=== PATIENT | female | born 1975 | race Caucasian/White ===

== ENCOUNTER 2017-01-23 08:51 | Day surgery (SDC) | payer MEDICAID ==
[2017-01-23 09:12] LABS: HCG UR QUAL NEGATIVE
[2017-01-23] MEDS ORDERED: LACTATED RINGERS 1,000 ML IV ONE ×3 (09:50→11:38)
[2017-01-23] MEDS ORDERED: BUPIVACAINE 0.25% PF 30 ML VIAL SUBQ ONE ×5 (11:36→12:04)
[2017-01-23] MEDS ORDERED: fentaNYL 100 MCG/2 ML VIAL IVP ONE (12:40)
[2017-01-23] MEDS ORDERED: ACETAMINOPHEN 1,000 MG/100 ML 100 ML IV ONE (12:40)
[2017-01-23] MEDS ORDERED: LIDOCAINE-MPF 2% 5 ML VIAL IM ONE (12:40)
[2017-01-23] MEDS ORDERED: ONDANSETRON 4 MG/2 ML VIAL IVP ONE (12:40)
[2017-01-23] MEDS ORDERED: PROPOFOL 200 MG/20 ML VIAL IVP ONE (12:40)
[2017-01-23] MEDS ORDERED: PROPOFOL 1000 MG/100 ML IV ONE (12:40)
[2017-01-23] MEDS ORDERED: MIDAZOLAM 2 MG/2 ML VIAL IVP ONE (12:40)
[2017-01-23] MEDS ORDERED: KETAMINE 500 MG/10 ML VIAL IVP ONE (12:40)
[2017-01-23] MEDS ORDERED: DEXAMETHASONE 4 MG/ML VIAL IVP ONE (12:40)
[2017-01-23] MEDS ORDERED: ceFAZolin 1 GM VIAL IV ONE (12:40)
[2017-01-23] MEDS: fentaNYL 100 MCG/2 ML VIAL ONE ×2 (13:18→13:25)
[2017-01-23 14:20] VITALS: BP 120/70
--- NOTE | 2017-02-13 13:55 | OPERATIVE REPORT ---
DATE OF SURGERY: 01/23/2017 00:00:00 PREOPERATIVE DIAGNOSIS: Bilateral carpal tunnel syndrome. PROCEDURES 1. Carpal tunnel release, right wrist. 2. Carpal tunnel release, left wrist. POSTOPERATIVE DIAGNOSIS: Bilateral carpal tunnel syndrome. SURGEON: Obie Garcia MD. ASSISTANTS: None. ANESTHESIA: General endotracheal. FINDINGS: Same. COMPLICATIONS: None. ESTIMATED BLOOD LOSS: None. TOURNIQUETS 1. Right arm Esmarch, x11 minutes. 2. Left arm Esmarch, x10 minutes. SPECIMEN REMOVED AND CULTURES: None. CONDITION AT END OF PROCEDURE: Stable. DISPOSITION: PACU, then home. 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 She has h ad a several month history of worsening bilateral upper extremity pain, numbness and tingling in bila teral median nerve distributions. 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 Because of her desire to minimize any loss of time from work, as s he is self-employed, she has elected to undergo bilateral [facility]. She has her mother coming to stay with during her recovery period to assist her with personal luisito y activities and we agreed to proceed with bilateral carpal tunnel release. PROCEDURE IN DETAIL: After consent and identification, the patient was brought to the operating room and placed in a supine position on the operating table. After induction of a general endotracheal ane sthesia, the right upper extremity was outstretched on a hand table and prepped and draped free in th e usual sterile fashion for upper extremity surgery. After the extremity was prepped and draped free, we used an Esmarch bandage to exsanguinate the extre mity. Appropriate timeout was then conducted. We mapped out a 3 cm incision from the wrist flexor crease just lateral to the mid palmar crease exte nding towards the palm of the hand. Incision was made with a #15 blade scalpel through skin and subcu taneous fat down to the palmar fascia. The palmar fascia was divided. Ragnell and Heiss retractors we re placed and we used a #15 blade to make sweeping motions across the flexor retinaculum until we had created a rent in the mid portion of the retinaculum. We then placed a [place] elevator deep to the re tinaculum going distally and dissected the rest of the retinaculum distally with a 15-blade scalpel. We reversed the [place] elevator proximally and completed our dissection proximally with a #15 blade sc alpel and tenotomy scissors. Digital exploration revealed an adequate release of the transverse carpa l retinaculum. We irrigated the wound and closed with a running interlocked 4-0 nylon suture. The wou nd was dressed with Xeroform gauze after we injected 5 mL of 0.5% Marcaine without epinephrine into t he incision for local anesthetic. Xeroform gauze was applied followed by folded 4 x 4's and a bulky h and dressing over wrapped with an Antoni bandage and Kerlix. On completion of the procedure, the Esmarch was removed. The patient tolerated the procedure well. PROCEDURE #2: Left carpal tunnel release. At this point, we reversed the table, placed a hand table o n the left side of the table, outstretched left upper extremity in a similar fashion to the right and prepped and draped the left upper extremity free in the usual sterile fashion for left upper extremi ty surgery. After an appropriate timeout was conducted, we exsanguinated the left upper extremity wit h the Esmarch bandage. We rolled back the Esmarch bandage and mapped out our incision over the left h and, extending from the wrist flexor crease just ulnar to the mid palmar crease for 3 cm towards the palm of the hand. A similar carpal tunnel approach was made to the left upper extremity with a #15 bl miguel through the skin and subcutaneous tissue and palmar fascia. Heiss retractors and Ragnell were the n placed. We then completed our dissection of the transverse carpal retinaculum in a similar fashion to the right hand using a #15 blade scalpel, a [place] elevator for protection, and tenotomy scissors t o complete the dissection proximally. Digital exploration was then used to verify the adequacy of the release. We then irrigated the wound and closed with a running interlocked 4-0 nylon suture and dres sed the wound with Xeroform gauze after injecting 5 mL of 0.5% Marcaine without epinephrine. Folded 4 x 4's, a bulky hand dressing, Kerlix wrap, and an Antoni bandage were then used to dress the left upper extremity. On completion of the left upper extremity procedure, the Esmarch bandage was removed. The patient was extubated and transferred to the recovery room in good condition having tolerated the pr ocedure well. JOB #: [id number] EXT JOB #:[id number]
== END 2017-01-23 08:52 | disposition home or self-care (01) ==
LOC: SDS 08:51
PROVIDERS: ATTEND Orthopaedic Surgery
PROC: 01N50ZZ Release Median Nerve, Open Approach (ICD-10-PCS; 2017-01-23)
PROC: 01N50ZZ Release Median Nerve, Open Approach (ICD-10-PCS; principal; 2017-01-23 10:00)
DX: G56.03 Carpal tunnel syndrome, bilateral upper limbs (principal); F17.210 Nicotine dependence, cigarettes, uncomplicated
CPT/HCPCS: 64721; 81025; J0131; J7120

== ENCOUNTER 2017-02-02 08:23 | Outpatient (CLI) | payer MEDICAID ==
[2017-02-02 12:08] LABS: BASOPHILS % (AUTO) 1.4 %; EOSINOPHILS % (AUTO) 3.2 %; HCT - HEMATOCRIT 39.7 % (37.0-47.0); HGB - HEMOGLOBIN 13.7 g/dL (12.0-16.0); LYMPHOCYTES % (AUTO) 50.9 %; MEAN CORPUSCULAR HEMOGLOBIN 31.2 pg (27.0-31.0); MEAN CORPUSCULAR HGB CONC 34.5 g/dL (32.0-36.0); MEAN CORPUSCULAR VOLUME 90.4 fL (81.0-99.0); MEAN PLATELET VOLUME 7.5 fL (7.9-10.8); MONOCYTES % (AUTO) 7.9 %; NEUTROPHILS % (AUTO) 36.6 %; RED BLOOD COUNT 4.39 10^6/uL (4.20-5.40); RED CELL DISTRIBUTION WIDTH 12.2 % (12.0-15.0)
[2017-02-02 12:50] LABS: THYROID STIMULATING HORMONE 2.11 uIU/mL (0.34-5.60)
[2017-02-02 12:58] LABS: ALBUMIN/GLOBULIN RATIO 1.4 (1.0-2.2); BILIRUBIN,TOTAL 0.3 mg/dL (0.2-1.0); BUN - BLOOD UREA NITROGEN 17 mg/dL (6-20); CALCIUM 9.3 mg/dL (8.5-10.3); CARBON DIOXIDE - CO2 27 mmol/L (21-32); CHLORIDE 98 mmol/L (101-111); CREATININE 0.7 mg/dL (0.4-1.0); GFR - MDRD 92 (>89); GLUCOSE 141 mg/dL (70-100); IRON 67 ug/dL (28-170); SODIUM 135 mmol/L (135-145); TOTAL IRON BINDING CAPACITY 335 ug/dL (250-450); TOTAL PROTEIN 7.1 g/dL (6.7-8.2); TRANSFERRIN 239 mg/dL (192-382)
[2017-02-02 14:25] LABS: BAND NEUTROPHILS % (MANUAL) 0 %
[2017-02-02 14:28] LABS: BASOPHILS % (MANUAL) 1 %; EOSINOPHILS % (MANUAL) 3 %; LYMPHOCYTES % (MANUAL) 42 %; NEUTROPHILS % (MANUAL) 37 %; TOTAL CELLS COUNTED 100
[2017-02-02 14:29] LABS: NP AUTO DIFFERENTIAL? YES; NP MAN DIFFERENTIAL? NO; WBC MORPHOLOGY (MULTIPLE) 2+ VACUOLATION (NORMAL)
== END 2017-02-02 08:24 | disposition home or self-care (01) ==
LOC: LAB.F 08:23
PROVIDERS: ATTEND Nurse Practitioner Family
DX: R53.83 Other fatigue (principal)
CPT/HCPCS: 36415; 80053; 82607; 83540; 84443; 84466; 85025